=== PATIENT | male | born 1970 | race Caucasian/White ===

== ENCOUNTER 2016-05-03 15:59 | Emergency (ER) | payer BC, MEDICAID, OTHER ==
[2016-05-03 16:19] VITALS: BP 110/59
--- NOTE | 2016-05-03 20:18 | UC ---
Headache HPI - HPI Summary HPI Summary: patient complains of a "twitching" over the right side of his head. he states he has experienced this twitch a few months ago, and wonders if it related to stress. the twitch is not painful, is on the surface of the skin and does not feel deep, no NAQVI involved, no eye involvement, lasts for approximately 1 minutes , then will go away. takes no medications and denies allergies. states he usually isn't under stress, but thinks it is related. - History Of Current Complaint Chief Complaint: UCGeneralIllness Stated Complaint: MUSCLE SPASMS Hx Obtained From: Patient Onset/Duration: Sudden Onset Pain Intensity: 0 Pain Scale Used: 0-10 Numeric Timing: Intermittent, Lasting: - 1 minutse Location of Headache: Parietal - not headache, just described as a twitch Aggravating Factor: Nothing Allevating Factors: Nothing Associated Signs And Symptoms: Positive: Negative - Risk Factors SAH Risk Factors: Negative Meningitis Risk Factors: Negative SDH Risk Factors: Male Temporal Arteritis Risk Factors: Negative - Allergies/Home Medications Allergies/Adverse Reactions: Allergies Allergy/AdvReac Type Severity Reaction Status Date / Time No Known Allergies Allergy Verified 03/01/15 18:14 PMH/Surg Hx/FS Hx/Imm Hx Previously Healthy: Yes Endocrine History Of: Denies: Diabetes, Thyroid Disease Cardiovascular History Of: Denies: Cardiac Disorders, Hypertension Respiratory History Of: Denies: COPD, Asthma GI/ History Of: Denies: Ulcer - Surgical History Surgical History: Yes Surgery Procedure, Year, and Place: right side MULTIPLE BONE fractures reconstructions age 15 - Family History Known Family History: Positive: None - Social History Occupation: Employed Full-time Lives: With Family Alcohol Use: Rare Substance Use Type: None Smoking Status (MU): Former Smoker Have You Smoked in the Last Year: No When Did the Patient Quit Smoking/Using Tobacco: 10 yrs ago Review of Systems Constitutional: Negative Skin: Negative Eyes: Negative ENT: Negative Cardiovascular: Negative Gastrointestinal: Negative Genitourinary: Negative Musculoskeletal: Negative Neurological: Other - slight twitching over right parietal area Psychological: Negative All Other Systems Reviewed And Are Negative: Yes Physical Exam Triage Information Reviewed: Yes Appearance: Well-Appearing, No Pain Distress, Well-Nourished Vital Signs: Initial Vital Signs Temp 97.8 F 05/03/16 16:13 Pulse 72 05/03/16 16:13 Resp 16 05/03/16 16:13 BP 110/59 05/03/16 16:13 Pulse Ox 100 05/03/16 16:13 Vital Signs Reviewed: Yes Eye Exam: Normal Eyes: Positive: Conjunctiva Clear ENT Exam: Normal ENT: Positive: Normal ENT inspection, Pharynx normal, TMs normal Dental Exam: Normal Neck exam: Normal Neck: Positive: Supple, Nontender, No Lymphadenopathy Respiratory Exam: Normal Respiratory: Positive: Chest non-tender, Lungs clear Cardiovascular Exam: Normal Musculoskeletal Exam: Normal Musculoskeletal: Positive: Strength Intact, ROM Intact Neurological Exam: Normal Neurological: Positive: Alert Psychological Exam: Normal Psychological: Positive: Normal Response To Family, Age Appropriate Behavior Skin Exam: Normal Headache Course/Dx - Course Course Of Treatment: Patient educated about stress and manifestations of stress on our body. return precautions given. - Differential Dx/Diagnosis Differential Diagnosis/HQI/PQRI: Other - muscle ache, muscle spasm Provider Diagnoses: anxiety, muscle spasm Discharge - Discharge Plan Condition: Stable Disposition: HOME Prescriptions: Cyclobenzaprine TAB* [Flexeril TAB*] 10 mg PO BID PRN #15 tab MDD 2 PRN Reason: Pain Patient Education Materials: Muscle Spasm (ED) Referrals: Jere Sánchez MD [Primary Care Provider] -
== END 2016-05-03 17:30 | disposition home or self-care (01) ==
LOC: UCEAST 15:59 → MERGE 15:59 → UCEAST 17:30
DX: F41.9 Anxiety disorder, unspecified (principal); M62.838 Other muscle spasm
CPT/HCPCS: 99212; G0463

== ENCOUNTER 2016-11-23 07:02 | Emergency (ER) | payer OTHER ==
[2016-11-23 07:15] VITALS: BP 121/74
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
== END 2016-11-23 07:26 | disposition home or self-care (01) ==
LOC: UCEAST 07:02 → MERGE 07:02 → UCEAST 07:26
DX: T22.012A Burn of unspecified degree of left forearm, initial encounter (principal); T31.0 Burns involving less than 10% of body surface; X08.8XXA Exposure to other specified smoke, fire and flames, initial encounter; Y93.9 Activity, unspecified; Y92.9 Unspecified place or not applicable; Y99.9 Unspecified external cause status; Z87.891 Personal history of nicotine dependence
CPT/HCPCS: 99212; G0463

== ENCOUNTER 2017-02-12 07:58 | Emergency (ER) | payer OTHER ==
[2017-02-12 08:27] VITALS: BP 112/66
--- NOTE | 2017-02-12 09:22 | UC ---
Lower Extremity/Ankle HPI - HPI Summary HPI Summary: Patient presents with complaints of right foot pain, redness and swelling x 2 days. He states it started with a blister between his little, and fourth toes from sweaty feet, and tight shoes. He states the blister popped, and he covered it with a band-aide.He states that this morning the top of his foot was red, warm and painful. He denies fever, chills, or any other trauma. - History of Current Complaint Chief Complaint: UCSkin Stated Complaint: SWOLLEN FOOT Time Seen by Provider: 02/12/17 08:47 Hx Obtained From: Patient Onset/Duration: Gradual Onset, Lasting Days Severity Initially: Mild Severity Currently: Moderate Aggravating Factor(s): Standing, Ambulation Alleviating Factor(s): Rest, Elevation Able to Bear Weight: Yes - Risk Factors Gout Risk Factors: Negative DVT Risk Factors: Negative Septic Arthritis Risk Factor: Negative - Allergies/Home Medications Allergies/Adverse Reactions: Allergies Allergy/AdvReac Type Severity Reaction Status Date / Time No Known Allergies Allergy Verified 02/12/17 08:23 PMH/Surg Hx/FS Hx/Imm Hx Previously Healthy: Yes - Surgical History Surgical History: Yes Surgery Procedure, Year, and Place: right side MULTIPLE BONE fractures reconstructions age 15 - Family History Known Family History: Positive: Hypertension - Social History Occupation: Employed Full-time Lives: Alone Alcohol Use: Rare Substance Use Type: None Smoking Status (MU): Former Smoker Have You Smoked in the Last Year: No When Did the Patient Quit Smoking/Using Tobacco: 10 yrs ago - Immunization History Most Recent Tetanus Shot: unknown Review of Systems Constitutional: Negative Skin: Other - redness on top of right foot, blister between toes. Eyes: Negative ENT: Negative Respiratory: Negative Cardiovascular: Negative Gastrointestinal: Negative Genitourinary: Negative Motor: Negative Neurovascular: Negative Musculoskeletal: Negative Neurological: Negative Psychological: Negative All Other Systems Reviewed And Are Negative: Yes Physical Exam Triage Information Reviewed: Yes Appearance: Well-Appearing Vital Signs: Initial Vital Signs Temp 97.2 F 02/12/17 08:24 Pulse 56 02/12/17 08:24 Resp 16 02/12/17 08:24 BP 112/66 02/12/17 08:24 Pulse Ox 99 02/12/17 08:24 Vital Signs Reviewed: Yes Eye Exam: Normal ENT Exam: Normal Dental Exam: Normal Neck exam: Normal Neck: Positive: 1 Respiratory Exam: Normal Cardiovascular Exam: Normal Abdominal Exam: Normal Musculoskeletal Exam: Normal Neurological Exam: Normal Psychological Exam: Normal Skin Exam: Normal, Other - right foot, blister deflated between the fourth and fifth toes. area of erythma noted dorsum of right foot, slightly warm and painful to touch. rom intact. neruo-vasc intact. Lower Extremity Course/Dx - Course Course Of Treatment: Patient presents with cellulitis of right foot presumbed to be from blisters. He was treated with Kelfex 500 mg by mouth four times daily x 10 days. SX/SX of worsening infection were discussed and he was told to go to the ER if that occcurs. - Differential Dx/Diagnosis Differential Diagnosis/HQI/PQRI: Cellulitis Provider Diagnoses: cellulitis Discharge - Discharge Plan Condition: Stable Disposition: HOME Prescriptions: Cephalexin CAP* [Keflex CAP*] 500 mg PO QID #40 cap Patient Education Materials: Cellulitis (ED) Referrals: Jere Sánchez MD [Primary Care Provider] -
== END 2017-02-12 09:14 | disposition home or self-care (01) ==
LOC: UCEAST 07:58
DX: L03.90 Cellulitis, unspecified (principal); Z87.891 Personal history of nicotine dependence
CPT/HCPCS: 99212; G0463

== ENCOUNTER 2017-08-05 08:05 | Emergency (ER) | payer OTHER ==
[2017-08-05 08:17] VITALS: BP 122/77
--- NOTE | 2017-08-05 08:22 | UC ---
Ear Complaint HPI - HPI Summary HPI Summary: patient is on abx for UTI since 07/31/17. he has developed right ear pain, increasing since 3 day, severe this morning. - History of Current Complaint Stated Complaint: EAR PAIN Time Seen by Provider: 08/05/17 08:10 Hx Obtained From: Patient Onset/Duration: Sudden Onset, Lasting Days Severity Initially: Moderate Severity Currently: Moderate Pain Intensity: 3 Aggravating Factors: Nothing Alleviating Factors: Nothing - Allergies/Home Medications Allergies/Adverse Reactions: Allergies Allergy/AdvReac Type Severity Reaction Status Date / Time No Known Allergies Allergy Verified 07/31/17 09:13 PMH/Surg Hx/FS Hx/Imm Hx Previously Healthy: Yes - Surgical History Surgical History: Yes Surgery Procedure, Year, and Place: right side MULTIPLE BONE fractures reconstructions age 15 - Family History Known Family History: Positive: Hypertension - Social History Alcohol Use: Rare Substance Use Type: None Smoking Status (MU): Former Smoker Have You Smoked in the Last Year: No When Did the Patient Quit Smoking/Using Tobacco: 10 yrs ago - Immunization History Most Recent Tetanus Shot: unknown Review of Systems Constitutional: Negative Skin: Negative Eyes: Eye Redness ENT: Ear Ache Respiratory: Negative Cardiovascular: Negative Gastrointestinal: Negative Genitourinary: Negative Motor: Negative Neurovascular: Negative Musculoskeletal: Negative Neurological: Negative Psychological: Negative Is Patient Immunocompromised?: No All Other Systems Reviewed And Are Negative: Yes Physical Exam Triage Information Reviewed: Yes Appearance: Well-Nourished, Ill-Appearing, Pain Distress Vital Signs: Initial Vital Signs Temp 97.3 F 08/05/17 08:10 Pulse 76 08/05/17 08:10 Resp 16 08/05/17 08:10 BP 122/77 08/05/17 08:10 Pulse Ox 100 08/05/17 08:10 Vital Signs Reviewed: Yes Eye Exam: Normal ENT: Positive: Pharynx normal, Other - bilateral cerumen impaction Dental Exam: Normal Neck exam: Normal Neck: Positive: Supple, Nontender, No Lymphadenopathy Respiratory Exam: Normal Respiratory: Positive: Chest non-tender, Lungs clear, Normal breath sounds Cardiovascular Exam: Normal Cardiovascular: Positive: RRR, No Murmur, Pulses Normal Abdominal Exam: Normal Abdomen Description: Positive: Nontender, No Organomegaly, Soft Bowel Sounds: Positive: Present Musculoskeletal Exam: Normal Neurological Exam: Normal Psychological Exam: Normal Ear Complaint Course/Dx - Course Course Of Treatment: hx obtained, exam performed ,meds reviewed, bilateral ear irrigation performed, left otitis media and right serous otitis treated - Differential Dx/Diagnosis Differential Diagnosis/HQI/PQRI: Cerumen Impaction, Mastoiditis, Otitis Externa , Otitis Media, URI Provider Diagnoses: right serous otitis. left otitis media Discharge - Sign-Out/Discharge Documenting (check all that apply): Discharge - Discharge Plan Condition: Stable Disposition: HOME Prescriptions: Cephalexin CAP* [Keflex CAP*] 500 mg PO BID #14 cap predniSONE TAB* [Deltasone TAB*] 40 mg PO DAILY #14 tab Patient Education Materials: Serous Otitis Media (ED) Referrals: Juan Silverman MD [Primary Care Provider] - Additional Instructions: 1. take the medication as prescribed. 2. Warm compresses and gentle stretching of the neck. 3. Tylenol and Ibuprofen as needed. - Billing Disposition and Condition Condition: STABLE Disposition: HOME
== END 2017-08-05 09:05 | disposition home or self-care (01) ==
LOC: UCEAST 08:05
DX: H65.91 Unspecified nonsuppurative otitis media, right ear (principal); H66.92 Otitis media, unspecified, left ear; H61.23 Impacted cerumen, bilateral; Z87.891 Personal history of nicotine dependence
CPT/HCPCS: 99213; G0463

== ENCOUNTER 2018-02-19 17:43 | Emergency (ER) | payer BC, OTHER ==
[2018-02-19 18:39] VITALS: BP 125/71
--- NOTE | 2018-02-19 19:13 | UC ---
Throat Pain/Nasal Rajendra HPI - HPI Summary HPI Summary: 47-year-old male presents with onset of sore throat and subjective fever last evening. Associated with some general malaise. Denies ear pain, nasal congestion, nasal discharge, cough, chest pain, shortness of breath, abdominal pain, nausea, or vomiting. States his daughter was diagnosed yesterday with strep throat. - History of Current Complaint Chief Complaint: UCGeneralIllness Stated Complaint: SORE THROAT Time Seen by Provider: 02/19/18 19:00 Hx Obtained From: Patient Onset/Duration: Lasting Days - 1 Severity: Mild Pain Intensity: 0 Cough: None Associated Signs & Symptoms: Negative: Dysphagia, Drooling, Hoarseness, Sinus Discomfort, Nasal Discharge, Fever, Vomiting, Rash - Allergies/Home Medications Allergies/Adverse Reactions: Allergies Allergy/AdvReac Type Severity Reaction Status Date / Time No Known Allergies Allergy Verified 02/19/18 18:39 PMH/Surg Hx/FS Hx/Imm Hx Other GI/ History: BPH - Surgical History Surgical History: Yes Surgery Procedure, Year, and Place: right side MULTIPLE BONE fractures reconstructions age 15 - Family History Known Family History: Positive: Hypertension - Social History Occupation: Employed Full-time Lives: With Family Alcohol Use: Occasionally Substance Use Type: None Smoking Status (MU): Former Smoker Have You Smoked in the Last Year: No When Did the Patient Quit Smoking/Using Tobacco: 10 yrs ago - Immunization History Most Recent Tetanus Shot: unknown Review of Systems Constitutional: Fever, Chills, Other - General malaise Skin: Negative Eyes: Negative ENT: Sore Throat Respiratory: Negative Cardiovascular: Negative Gastrointestinal: Negative Is Patient Immunocompromised?: No All Other Systems Reviewed And Are Negative: Yes Physical Exam Triage Information Reviewed: Yes Appearance: Well-Appearing, No Pain Distress, Well-Nourished Vital Signs: Initial Vital Signs Temp 98.7 F 02/19/18 18:35 Pulse 71 02/19/18 18:35 Resp 16 02/19/18 18:35 BP 125/71 02/19/18 18:35 Pulse Ox 96 02/19/18 18:35 Eye Exam: Normal Eyes: Positive: Conjunctiva Clear. Negative: Discharge ENT: Positive: Hearing grossly normal, Pharyngeal erythema, Tonsillar swelling - 1+, Uvula midline. Negative: Nasal congestion, Nasal drainage, Tonsillar exudate, Trismus, Muffled voice, Hoarse voice, Sinus tenderness Neck: Positive: Supple, Nontender, Enlarged Nodes @ - Left anterior cervical Respiratory: Positive: Lungs clear, Normal breath sounds, No respiratory distress Cardiovascular: Positive: RRR, No Murmur Neurological: Positive: Alert Psychological Exam: Normal Throat Pain/Nasal Course/Dx - Course Course Of Treatment: 47 year old male with 1 day history of sore throat with exposure to strep. Afebrile. Exam revealed pharyngeal erythema and mild tonsillar swelling without exudate. Rapid strep negative. Recommend symptomatic treatment for viral pharyngitis. He is to f/u with PCP in 7 days if no improvement in symptoms. Warning symptoms reviewed with patient. Verbalizes understanding and agrees with POC. - Differential Dx/Diagnosis Differential Diagnosis/HQI/PQRI: Pharyngitis, Tonsillitis, URI Provider Diagnoses: Viral pharyngitis Discharge - Sign-Out/Discharge Documenting (check all that apply): Patient Departure All imaging exams completed and their final reports reviewed: No Studies - Discharge Plan Condition: Stable Disposition: HOME Patient Education Materials: Pharyngitis (ED) Referrals: Juan Silverman MD [Primary Care Provider] - 7 Days (If symptoms persist.) Additional Instructions: Your rapid strep test was performed in the clinic today was negative. Her symptoms are likely from a viral infection. Viral infections do not respond to antibiotics and typically run their course of about 7-10 days. Be sure to get plenty of rest. Drink plenty of fluids and stay well-hydrated. Use salt water gargles several times a day for your sore throat. You may take acetaminophen (Tylenol) or ibuprofen (Advil, Motrin) according to directions as needed for pain or fever. You may also use Chloraseptic spray or Cepacol lozenges for some temporary pain relief of your sore throat. Follow-up with your primary care provider in 7 days if symptoms persist. Seek immediate medical attention in the emergency room if you have persistent fever greater than 100.5 F despite taking acetaminophen or ibuprofen, you have difficulty swallowing, difficulty breathing, or any worsening of symptoms. - Billing Disposition and Condition Condition: STABLE Disposition: Home
== END 2018-02-19 19:37 | disposition home or self-care (01) ==
LOC: UCEAST 17:43
DX: J02.9 Acute pharyngitis, unspecified (principal); Z87.891 Personal history of nicotine dependence
CPT/HCPCS: 87651; 99211; G0463

== ENCOUNTER 2018-05-14 19:58 | Emergency (ER) | payer BC ==
[2018-05-14 20:08] VITALS: BP 128/73
--- NOTE | 2018-05-14 20:27 | UC ---
Cardiac HPI - HPI Summary HPI Summary: 47-year-old male comes to clinic today with a chief complaint of right-sided splinting chest pain. Started 3 days ago. He had exercised the day before he noticed the pain the next day. It's upper right chest. Pain is worse with taking a deep breath. Twisting and turning doesn't really make the pain worse. No upper respiratory tract infection symptoms no cough or chest congestion. No calf pain or swelling. Pain was worse yesterday it's not as bad today. Does not feel short of breath. Does not feel lightheaded. No left-sided chest pain. He has a history of BPH. He does not have a history of high blood pressure high cholesterol DVT PE or diabetes. No recent travel. He has not been a smoker for more than 10 years. There is no family history of clotting disorders pulmonary emboli or deep venous thrombosis. No rash. - History of Current Complaint Chief Complaint: UCChestPain Stated Complaint: CHEST PAIN Time Seen by Provider: 05/14/18 20:08 Pain Intensity: 7 - Allergy/Home Medications Allergies/Adverse Reactions: Allergies Allergy/AdvReac Type Severity Reaction Status Date / Time No Known Allergies Allergy Verified 05/14/18 20:08 PMH/Surg Hx/FS Hx/Imm Hx Previously Healthy: Yes Other GI/ History: BPH - Surgical History Surgical History: Yes Surgery Procedure, Year, and Place: right side MULTIPLE BONE fractures reconstructions age 15 - Family History Known Family History: Positive: Hypertension Negative: Blood Disorder Family History: NO FHX CLOTTING D/O - Social History Alcohol Use: Occasionally Substance Use Type: None Smoking Status (MU): Former Smoker Have You Smoked in the Last Year: No When Did the Patient Quit Smoking/Using Tobacco: 10 yrs ago - Immunization History Most Recent Tetanus Shot: unknown Review of Systems All Other Systems Reviewed And Are Negative: Yes Constitutional: Positive: Negative Skin: Positive: Negative Eyes: Positive: Negative ENT: Positive: Negative Respiratory: Positive: Negative Cardiovascular: Positive: Chest Pain Gastrointestinal: Positive: Negative Motor: Positive: Negative Neurovascular: Positive: Negative Musculoskeletal: Positive: Negative Neurological: Positive: Negative Psychological: Positive: Negative Is Patient Immunocompromised?: No Physical Exam Triage Information Reviewed: Yes Appearance: Well-Appearing, No Pain Distress, Well-Nourished Vital Signs: Initial Vital Signs Temp 97.4 F 01/15/19 19:59 Pulse 70 05/14/18 19:59 Resp 18 05/14/18 19:59 BP 128/73 05/14/18 19:59 Pulse Ox 97 05/14/18 19:59 Vital Signs Reviewed: Yes Eye Exam: Normal Eyes: Positive: Conjunctiva Clear Neck exam: Normal Neck: Positive: Supple Respiratory: Positive: Chest non-tender, Lungs clear, Normal breath sounds, No respiratory distress Cardiovascular: Positive: RRR Abdominal Exam: Normal Abdomen Description: Positive: Nontender, Soft Bowel Sounds: Positive: Present Musculoskeletal Exam: Normal Musculoskeletal: Positive: Strength Intact, ROM Intact, No Edema, Other: - NO CALF TENDERNESS Neurological Exam: Normal Neurological: Positive: Alert, Muscle Tone Normal Psychological Exam: Normal Psychological: Positive: Age Appropriate Behavior Skin Exam: Normal Skin: Positive: Other - NO RASH ON CHEST Diagnostics - EKG Cardiac Rate: NL - AT 20:03, Bradycardia Cardiac Rhythm: Sinus: Normal - 58BPM Ectopy: None ST Segment: Normal - PROBABLE LVH - Assessment/Plan Course Of Treatment: We discussed the EKG and the chest x-ray. I do not see any ischemic changes on EKG. Chest x-ray as NAD with radiologist reading pending. We discussed the different possible causes of the pain. With the pain being on the right side and splinting and having been going on for 3-4 days with a normal EKG cardiac cause is unlikely. With the pain improving and the patient not being short of breath and being low risk for pulmonary embolus, a PE is also unlikely but still possible. We discussed his risk for pulmonary embolus as being low. There is no family history of clotting disorders. he also has no history of clotting disorde.r. Is no recent travel. Calves Nontender. He is not tachycardic or hypoxic. Gary discussed going to the emergency department for further evaluation of his chest pain to include a troponin and a d-dimer. At this time the patient prefers to treat symptomatically and get further evaluation if he worsens or has any other concerns. The plan is to take ibuprofen and get reevaluated if his condition does not improve or worsens. Otherwise follow-up his primary care doctor. - Clinical Impression Provider Diagnosis: Chest pain Discharge - Sign-Out/Discharge Documenting (check all that apply): Patient Departure All imaging exams completed and their final reports reviewed: No - Discharge Plan Condition: Stable Disposition: HOME Patient Education Materials: Chest Pain (ED) Referrals: Juan Silverman MD [Primary Care Provider] - Additional Instructions: FOLLOW UP WITH YOUR DOCTOR. GO TO THE EMERGENCY DEPARTMENT FOR ANY WORSENING OF YOUR CONDITION; CHEST PAIN, SHORTNESS OF BREATH, YOU FEEL ILL OR QUESTIONS OR CONCERNS. - Billing Disposition and Condition Condition: STABLE Disposition: Home
== END 2018-05-14 20:50 | disposition home or self-care (01) ==
LOC: UCEAST 19:58
DX: R07.89 Other chest pain (principal); R00.1 Bradycardia, unspecified; Z87.891 Personal history of nicotine dependence
CPT/HCPCS: 71046; 93005; 99211; G0463